=== PATIENT | female | born 1980 | race Caucasian/White ===

== ENCOUNTER 2017-09-03 04:48 | Inpatient (IN) | payer MEDICAID ==
[2017-09-03] MEDS ORDERED: SOD CHLORIDE 0.9% 1,000 ML IV (06:47)
[2017-09-03] MEDS: LACTATED RINGER'S 1,000 ML IV (07:03)
[2017-09-03] MEDS: KETOROLAC 15 MG INJ IV ×4 (07:03→22:27)
[2017-09-03] MEDS: ONDANSETRON 4 MG INJ IV (07:04)
[2017-09-03] MEDS: HYDROmorphONE 1 MG/ML SYG IV (07:04)
[2017-09-03 07:24] LABS: ADD UMIC YES; UR ASCORBIC ACID NEGATIVE (NEGATIVE); UR BILIRUBIN (Dip) NEGATIVE (NEGATIVE); UR BLOOD (Dip) 1+ mg/dL (NEGATIVE); UR CLARITY SLIGHTLY CLOUDY (CLEAR); UR COLOR YELLOW (YELLOW); UR GLUCOSE (Dip) NEGATIVE (NEGATIVE); UR KETONES (Dip) NEGATIVE (NEGATIVE); UR LEUKOCYTE ESTERASE (Dip) TRACE Leu/ul (NEGATIVE); UR NITRITE (Dip) NEGATIVE (NEGATIVE); UR RBC 1 /HPF (0-5); UR SPECIFIC GRAVITY (Dip) 1.019 (1.003-1.030); UR SQUAMOUS EPITHELIAL CELL FEW /HPF (FEW); UR TOTAL PROTEIN (Dip) NEGATIVE (NEGATIVE); UR UROBILINOGEN (Dip) NEGATIVE (NEGATIVE); UR WBC 2 /HPF (0-5)
[2017-09-03 07:39] LABS: ADD MAN DIFF? NO
[2017-09-03 07:49] LABS: ALANINE AMINOTRANSFERASE 52 IU/L (13-69); ALBUMIN 4.2 g/dl (3.3-4.9); ALBUMIN/GLOBULIN RATIO 1.27; ALKALINE PHOSPHATASE 92 IU/L (42-121); ANION GAP 16 (8-16); ASPARTATE AMINO TRANSFERASE 39 IU/L (15-46); BILIRUBIN,INDIRECT 0.2 mg/dl (0-1.1); BILIRUBIN,TOTAL 0.2 mg/dl (0.2-1.3); BLOOD UREA NITROGEN 15 mg/dl (7-20); CALCIUM 9.4 mg/dl (8.4-10.2); CARBON DIOXIDE 24 mmol/L (21-31); CHLORIDE 104 mmol/L (97-110); GLUCOSE 111 mg/dl (70-220); LIPASE 119 U/L (23-300); SODIUM 140 mmol/L (135-144); TOTAL PROTEIN 7.5 g/dl (6.1-8.1)
[2017-09-03 07:51] LABS: BASOPHILS % 0.4 % (0.0-2.0); EOSINOPHILS # 0.1 10^3/ul (0.0-0.5); EOSINOPHILS % 1.2 % (0.0-7.0); HEMATOCRIT 36.8 % (37.0-47.0); HEMOGLOBIN 12.9 g/dl (12.0-16.0); LYMPHOCYTES # 2.8 10^3/ul (0.8-2.9); LYMPHOCYTES % 28.1 % (15.0-51.0); MEAN CORPUSCULAR HEMOGLOBIN 30.5 pg (29.0-33.0); MEAN CORPUSCULAR HGB CONC 35.1 g/dl (32.0-37.0); MEAN PLATELET VOLUME 9.9 fl (7.4-10.4); MONOCYTE # 0.6 10^3/ul (0.3-0.9); MONOCYTES % 6.2 % (0.0-11.0); NEUTROPHIL # 6.4 10^3/ul (1.6-7.5); NEUTROPHILS % 63.7 % (39.0-77.0); PLATELET COUNT 306 10^3/UL (140-415); RED BLOOD COUNT 4.23 10^6/ul (4.20-5.40); RED CELL DISTRIBUTION WIDTH 12.9 % (11.5-14.5)
[2017-09-03] MEDS: HYDROmorphONE 0.5 MG/0.5 ML SYG IV ×2 (10:10→12:49)
[2017-09-03] MEDS ORDERED: morphine 2 MG INJ IV (13:00)
[2017-09-03] MEDS ORDERED: ONDANSETRON 4 MG INJ IV ×2 (13:00)
[2017-09-03] MEDS ORDERED: NACL 0.9% 3 ML SYG IV (13:00)
[2017-09-03] MEDS ORDERED: ACETAMINOPHEN 325 MG TAB PO (13:00)
[2017-09-03] MEDS: 1/2 NS + KCL 20 MEQ 1,000 ML IV ×2 (14:26→23:00)
[2017-09-03] MEDS ORDERED: ACYCLOVIR 400 MG TAB PO (21:00)
[2017-09-03] MEDS: ACETAMINOPHEN 1000MG/100ML IV 100 ML IVPB (21:28)
[2017-09-03] MEDS: SOD CHLORIDE 0.9% IVPB (21:29)
[2017-09-03] MEDS: ACYCLOVIR IVPB (21:29)
[2017-09-04] MEDS: 1/2 NS + KCL 20 MEQ 1,000 ML IV ×3 (02:33→18:52)
[2017-09-04] MEDS: ACETAMINOPHEN 1000MG/100ML IV 100 ML IVPB ×3 (05:26→20:20)
[2017-09-04] MEDS: ACYCLOVIR IVPB ×2 (05:26→15:08)
[2017-09-04] MEDS: SOD CHLORIDE 0.9% IVPB ×2 (05:26→15:08)
[2017-09-04 06:26] LABS: ADD MAN DIFF? NO
[2017-09-04 06:36] LABS: WHITE BLOOD COUNT 8.6 10^3/ul (4.8-10.8)
[2017-09-04 06:36] LABS: BASOPHILS % 0.5 % (0.0-2.0); EOSINOPHILS # 0.2 10^3/ul (0.0-0.5); EOSINOPHILS % 2.2 % (0.0-7.0); HEMATOCRIT 37.5 % (37.0-47.0); HEMOGLOBIN 12.7 g/dl (12.0-16.0); LYMPHOCYTES # 2.8 10^3/ul (0.8-2.9); LYMPHOCYTES % 32.9 % (15.0-51.0); MEAN CORPUSCULAR HEMOGLOBIN 29.5 pg (29.0-33.0); MEAN CORPUSCULAR HGB CONC 33.9 g/dl (32.0-37.0); MEAN CORPUSCULAR VOLUME 87.2 fl (82.0-101.0); MEAN PLATELET VOLUME 9.6 fl (7.4-10.4); MONOCYTE # 0.6 10^3/ul (0.3-0.9); MONOCYTES % 6.6 % (0.0-11.0); NEUTROPHILS % 57.5 % (39.0-77.0); PLATELET COUNT 287 10^3/UL (140-415); RED CELL DISTRIBUTION WIDTH 13.1 % (11.5-14.5)
[2017-09-04 07:06] LABS: ALANINE AMINOTRANSFERASE 45 IU/L (13-69); ALBUMIN 3.7 g/dl (3.3-4.9); ALBUMIN/GLOBULIN RATIO 1.19; ALKALINE PHOSPHATASE 68 IU/L (42-121); ANION GAP 15 (8-16); ASPARTATE AMINO TRANSFERASE 27 IU/L (15-46); BILIRUBIN,INDIRECT 0.7 mg/dl (0-1.1); BILIRUBIN,TOTAL 0.7 mg/dl (0.2-1.3); BLOOD UREA NITROGEN 9 mg/dl (7-20); CALCIUM 8.9 mg/dl (8.4-10.2); CARBON DIOXIDE 26 mmol/L (21-31); CHLORIDE 105 mmol/L (97-110); CHOL/HDL RATIO 4.3 RATIO; CHOLESTEROL 187 mg/dl (100-200); CREATININE 0.54 mg/dl (0.44-1.00); GLUCOSE 98 mg/dl (70-220); HDL CHOLESTEROL 43 mg/dl (34-82); LDL CHOLESTEROL,CALCULATED 93 mg/dl; MAGNESIUM 1.8 mg/dl (1.7-2.5); PHOSPHORUS 3.5 mg/dl (2.5-4.9); POTASSIUM 3.7 mmol/L (3.5-5.1); SODIUM 142 mmol/L (135-144); TOTAL PROTEIN 6.8 g/dl (6.1-8.1); TRIGLYCERIDES 256 mg/dl (0-149)
[2017-09-04 07:59] LABS: HEMOGLOBIN A1C 5.1 % (0-5.9)
[2017-09-04] MEDS: KETOROLAC 15 MG INJ IV ×3 (08:12→18:53)
[2017-09-04] MEDS: INFLUENZA VIRUS VACCINE 0.5 ML SYG IM* (14:03)
[2017-09-05] MEDS: ACYCLOVIR IVPB ×2 (00:17→06:26)
[2017-09-05] MEDS: SOD CHLORIDE 0.9% IVPB ×2 (00:17→06:26)
[2017-09-05] MEDS: KETOROLAC 15 MG INJ IV ×4 (00:23→21:36)
[2017-09-05] MEDS: 1/2 NS + KCL 20 MEQ 1,000 ML IV ×2 (05:00→10:23)
[2017-09-05] MEDS: ACETAMINOPHEN 1000MG/100ML IV 100 ML IVPB ×3 (05:45→20:38)
[2017-09-05] MEDS: ACYCLOVIR 500 MG in SOD CHLORIDE 0.9% 100 ML IVPB ×2 (13:19→21:35)
[2017-09-05] MEDS ORDERED: FENTAnyl 50 MCG/ML VIAL ×2 (16:12→18:09)
[2017-09-05] MEDS ORDERED: PROPOFOL 20 ML (16:12)
[2017-09-05] MEDS ORDERED: FLUMAZENIL 0.5 MG INJ (16:12)
[2017-09-05] MEDS ORDERED: ROCURONIUM 50 MG INJ (16:12)
[2017-09-05] MEDS ORDERED: MIDAZOLAM 1 MG/ML 2 ML INJ (16:12)
[2017-09-05] MEDS ORDERED: ROPIVACAINE 0.5 % 30 ML VIAL (16:13)
[2017-09-05] MEDS ORDERED: BUPIVACAINE 0.5% (SDV) 30 ML INJ (16:53)
[2017-09-05] MEDS ORDERED: HYDROmorphONE 2 MG/ML SYG IV (17:00)
[2017-09-05] MEDS ORDERED: ACETAMINOPHEN 325 MG TAB PO (17:00)
[2017-09-05] MEDS ORDERED: METOCLOPRAMIDE 10 MG INJ (17:36)
[2017-09-05] MEDS ORDERED: ONDANSETRON 4 MG INJ (17:36)
[2017-09-05] MEDS ORDERED: KETOROLAC 30 MG INJ (17:36)
[2017-09-05] MEDS ORDERED: SUGAMMADEX SODIUM 200 MG/2 ML VIAL IV (17:36)
[2017-09-05] MEDS ORDERED: ACETAMINOPHEN 1000MG/100ML IV 100 ML (17:36)
[2017-09-05] MEDS ORDERED: CEFAZOLIN 1 GM INJ (17:36)
[2017-09-05] MEDS ORDERED: DEXAMETHASONE 4 MG/ML 1 ML INJ (17:36)
[2017-09-05] MEDS: LIDOCAINE 1%/EPI 30 ML INJ (17:37)
[2017-09-05] MEDS ORDERED: HYDROmorphONE (0.2 MG/ML) 10ML SYG IV ×2 (18:00)
[2017-09-05] MEDS ORDERED: PIPER-TAZO 3.375 GM IV (PMX) 100 ML IVPB (18:00)
[2017-09-05] MEDS ORDERED: DIPHENHYDRAMINE 50 MG INJ IV (18:00)
[2017-09-05] MEDS ORDERED: FENTAnyl 50 MCG/ML VIAL IV ×3 (18:00)
[2017-09-05] MEDS ORDERED: LABETALOL HCL 20MG INJ IV (18:00)
[2017-09-05] MEDS ORDERED: EPHEDrine SULFATE 50 MG/5 ML SYG IV (18:00)
[2017-09-05] MEDS ORDERED: METOCLOPRAMIDE 10 MG INJ IV (18:00)
[2017-09-05] MEDS ORDERED: OXYCODONE/ACETAMINOPHEN (5/325) TAB PO (18:00)
[2017-09-05] MEDS ORDERED: MEPERIDINE 25 MG INJ IV (18:00)
[2017-09-05] MEDS: HYDROmorphONE (0.2 MG/ML) 10ML SYG IV ×2 (18:29→18:51)
[2017-09-05] MEDS: D5W-0.45 NACL + KCL 20 MEQ 1,000 ML IV (19:01)
[2017-09-05] MEDS: ONDANSETRON 4 MG INJ IV (19:33)
[2017-09-05] MEDS: PIPER-TAZO 3.375 GM IV (PMX) 100 ML IVPB (20:24)
[2017-09-06] MEDS: PIPER-TAZO 3.375 GM IV (PMX) 100 ML IVPB ×5 (00:20→23:33)
[2017-09-06] MEDS: OXYCODONE/ACETAMINOPHEN (5/325) TAB PO ×4 (00:20→20:52)
[2017-09-06] MEDS: D5W-0.45 NACL + KCL 20 MEQ 1,000 ML IV (03:00)
[2017-09-06] MEDS: KETOROLAC 15 MG INJ IV ×2 (03:13→09:51)
[2017-09-06] MEDS: ACETAMINOPHEN 1000MG/100ML IV 100 ML IVPB ×3 (04:36→21:00)
[2017-09-06 06:08] LABS: ADD MAN DIFF? NO
[2017-09-06 06:17] LABS: BASOPHILS % 0.1 % (0.0-2.0); HEMATOCRIT 33.6 % (37.0-47.0); HEMOGLOBIN 11.8 g/dl (12.0-16.0); LYMPHOCYTES # 1.3 10^3/ul (0.8-2.9); LYMPHOCYTES % 14.4 % (15.0-51.0); MEAN CORPUSCULAR HEMOGLOBIN 29.9 pg (29.0-33.0); MEAN CORPUSCULAR HGB CONC 35.1 g/dl (32.0-37.0); MEAN CORPUSCULAR VOLUME 85.1 fl (82.0-101.0); MEAN PLATELET VOLUME 9.4 fl (7.4-10.4); MONOCYTE # 0.3 10^3/ul (0.3-0.9); MONOCYTES % 3.6 % (0.0-11.0); NEUTROPHIL # 7.4 10^3/ul (1.6-7.5); NEUTROPHILS % 81.5 % (39.0-77.0); PLATELET COUNT 291 10^3/UL (140-415); RED BLOOD COUNT 3.95 10^6/ul (4.20-5.40); RED CELL DISTRIBUTION WIDTH 12.4 % (11.5-14.5)
[2017-09-06 06:17] LABS: WHITE BLOOD COUNT 9.1 10^3/ul (4.8-10.8)
[2017-09-06 06:43] LABS: ALANINE AMINOTRANSFERASE 72 IU/L (13-69); ALBUMIN/GLOBULIN RATIO 1.33; ALKALINE PHOSPHATASE 69 IU/L (42-121); ANION GAP 15 (8-16); ASPARTATE AMINO TRANSFERASE 68 IU/L (15-46); BILIRUBIN,INDIRECT 0.3 mg/dl (0-1.1); BILIRUBIN,TOTAL 0.3 mg/dl (0.2-1.3); BLOOD UREA NITROGEN 6 mg/dl (7-20); CALCIUM 9.3 mg/dl (8.4-10.2); CARBON DIOXIDE 25 mmol/L (21-31); CHLORIDE 105 mmol/L (97-110); CREATININE 0.56 mg/dl (0.44-1.00); GLUCOSE 119 mg/dl (70-220); POTASSIUM 4.6 mmol/L (3.5-5.1); SODIUM 140 mmol/L (135-144)
[2017-09-06] MEDS: ACYCLOVIR 500 MG in SOD CHLORIDE 0.9% 100 ML IVPB ×3 (08:09→21:51)
[2017-09-06] MEDS: ENOXAPARIN 40 MG/0.4 ML SYG SC (09:27)
[2017-09-06] MEDS: IBUPROFEN 600 MG TAB PO ×2 (13:12→19:21)
[2017-09-06] MEDS: METOCLOPRAMIDE 10 MG INJ IV ×3 (14:42→23:33)
[2017-09-07] MEDS: ACETAMINOPHEN 1000MG/100ML IV 100 ML IVPB (04:41)
[2017-09-07] MEDS: PIPER-TAZO 3.375 GM IV (PMX) 100 ML IVPB ×2 (05:40→12:15)
[2017-09-07] MEDS: METOCLOPRAMIDE 10 MG INJ IV ×2 (05:40→12:15)
[2017-09-07] MEDS: ENOXAPARIN 40 MG/0.4 ML SYG SC (06:34)
[2017-09-07] MEDS: ACYCLOVIR 500 MG in SOD CHLORIDE 0.9% 100 ML IVPB (06:35)
[2017-09-07] MEDS: OXYCODONE/ACETAMINOPHEN (5/325) TAB PO ×2 (06:38→12:15)
[2017-09-07] MEDS: IBUPROFEN 600 MG TAB PO (10:25)
== END 2017-09-07 13:25 | disposition home or self-care (01) | DRG 419 ==
LOC: E/R 04:48 → MS2 14:03
PROC: 0FT44ZZ Resection of Gallbladder, Percutaneous Endoscopic Approach (ICD-10-PCS; principal; 2017-09-05 16:59)
DX: K80.00 Calculus of gallbladder with acute cholecystitis without obstruction (principal); B02.9 Zoster without complications; N83.209 Unspecified ovarian cyst, unspecified side
CPT/HCPCS: 36415; 74176; 76705; 78226; 80053; 80061; 81001; 83036; 83690; 83735; 84100; 85025; 88304; 90686; 96374; 96375; 96376; 99285-25